=== PATIENT | female | born 2005 | race Two or more races ===

== ENCOUNTER 2023-02-09 19:26 | Emergency (ER) | payer BC, SELFPAY ==
--- NOTE | ~2023-02-09 | XR_ITS ---
EXAMINATION: XR CHEST CLINICAL INFORMATION: Cough. COMPARISON: None available. TECHNIQUE: 2 views of the chest were obtained. FINDINGS: No significant abnormality is noted involving the heart, lungs, mediastinum, bony thorax or soft tissues. XR/XR chest 2V IMPRESSION: Unremarkable examination.
--- NOTE | 2023-02-09 19:56 | ED_ITS ---
HPI - General Adult General Chief complaint: Upper Respiratory Symptoms <NATALIA Tafoya - Last Filed: 02/09/23 19:57> Stated complaint: Flu like symptoms/Fever <NATALIA Tafoya - Last Filed: 02/09/23 19:57> Time Seen by Provider: 02/09/23 23:43 <NATALIA Tafoya - Last Filed: 02/09/23 19:57> Source: patient <NATALIA Webster - Last Filed: 02/10/23 00:02> Mode of arrival: ambulatory <NATALIA Webster - Last Filed: 02/10/23 00:02> Limitations: no limitations <NATALIA Webster Last Filed: 02/10/23 00:02> History of Present Illness HPI narrative: This is a 17-year-old female without significant medical history presenting to the emergency department fatigue, malaise, subjective fevers and chills, sore throat, weakness, dry cough, myalgias since Sunday, 3 days ago. Patient took a strep test at school and was negative. Patient reports severe throat pain making it difficult to swallow. Patient tells her with mother her m ost is a dry cough and a sore throat. Denies any recent sick contacts. Denies chest pain, shortness of breath, nausea, vomiting, abdominal pain, headache, vision changes, dizziness. <NATALIA Webster Last Filed: 02/10/23 00:02> Related Data Home medications: Previous Rx's Medication Instructions Recorded Magic Mouthwash 5 ml PO TID #240 mL 02/09/23 Diphen/Lido/Antacid 1:1:1 240 mL suspension albuterol sulfate 90 mcg/actuation 2 inh inhalation Q4-6H PRN 02/09/23 breath activated powder inhaler shortness of breath #1 ea amoxicillin 875 mg-potassium 1 tab PO BID 10 days #20 tabs 02/09/23 clavulanate 125 mg tablet benzonatate 100 mg capsule 100 mg PO BID PRN cough #20 caps 02/10/23 prednisone 20 mg tablet 40 mg PO DAILY 5 days #10 tabs 02/10/23 <NATALIA Tafoya - Last Filed: 02/09/23 19:57> Allergies/adverse reactions: Allergies Allergy/AdvReac Type Severity Reaction Status Date / Time No Known Allergies Allergy Verified 02/09/23 19:57 <NATALIA Tafoya - Last Filed: 02/09/23 19:57> Review of Systems Review of Systems: Constitutional : No Weight loss, + Fever, + Chills, + Fatigue, + Malaise ENT/Mouth : + sore throat, No Rhinorrhea Eyes: No Eye Pain, No Swelling, No Redness Cardiovascular : No Chest Pain, No SOB, No Dyspnea on Exertion, No Orthopnea, No Edema, No Palpitations Respiratory : + Cough, No Sputum, No Wheezing Gastrointestinal : No Nausea, No Vomiting, No Diarrhea, No Constipation, No abdominal Pain, No Hematochezia, No Melena Genitourinary : No Dysuria, No Urinary Frequency, No Hematuria, Musculoskeletal : No joint pain, No Myalgias, No Joint Swelling Skin : No Skin Lesions, No rash Neuro : No Weakness, No Numbness, No Dizziness, No Headache Psych : No Anxiety/Panic, No Depression All other systems reviewed and are negative <NATALIA Webster - Last Filed: 02/10/23 00:02> Yes all other systems are reviewed and are negative <NATALIA Webster - Last Filed: 02/10/23 00:02> [facility] Past Medical History Attestation statement: The following information was validated with the patient. <NATALIA Webster - Last Filed: 02/10/23 00:02> Source: old records reviewed and nursing notes reviewed <NATALIA Webster - Last Filed: 02/10/23 00:02> Social History Social History: Social History Advance Directives: No Advance Directives Information Provided: No <NATALIA Tafoya - Last Filed: 02/09/23 19:57> Physical Exam ED Vital Signs: Vital Signs - 24 hr 02/09/23 20:01 02/09/23 23:35 Temperature 100.7 F H 99 F Pulse Rate 130 H 118 H Respiratory Rate 20 16 Blood Pressure 160/63 H 113/73 Pulse Oximetry 95 100 Oxygen Delivery Method Room Air Room Air BMI result Body Mass Index 21.0 <NATALIA Tafoya Last Filed: 02/09/23 19:57> Vital Signs - 24 hr 02/09/23 20:01 02/09/23 23:35 Temperature 100.7 F H 99 F Pulse Rate 130 H 118 H Respiratory Rate 20 16 Blood Pressure 160/63 H 113/73 Pulse Oximetry 95 100 Oxygen Delivery Method Room Air Room Air BMI result Body Mass Index 21.0 Vital signs stable <NATALIA Webster Last Filed: 02/10/23 00:02> Appearance: Alert.? Oriented X3.? No acute distress.? Head: Normocephalic, atraumatic, no step-offs or deformities Eyes: Pupils equal, round and reactive to light.? ENT: Pharynx with bilateral tonsils with erythema slight edema, uvula midline, no signs of abscess or exudate. Patient speaking in full sentences controlling secretions well. No pain with manipulation of bilateral ears. No mastoid tenderness..? Neck: Normal inspection.? Neck supple.? CVS: Normal heart rate and rhythm.? Pulses normal.? Respiratory: No respiratory distress.? Breath sounds normal.? Abdomen: Soft and nontender.? Skin: Skin warm and dry.? Normal skin color.? Normal skin turgor.? Extremities: No lower extremity edema.? No calf ttp. 5/5 strength to bilateral upper and lower extremities Neuro: Oriented X 3.? No motor deficit.? No sensory deficit. CN 2-12 intact <NATALIA Webster Last Filed: 02/10/23 00:02> Course Course Course Narrative: RME performed by Yakelin Otero PA-C. Patient is a 17 year old assigned female at presenting to the emergency department with sore throat and fever. Labs and swabs ordered. Patient placed back in the waiting room pending room availability and results. <NATALIA Tafoya Last Filed: 02/09/23 19:57> Reevaluation(s) Reevaluation #1: CBC with slight leukocytosis. Chemistry without acute electrolyte abnormalities requiring intervention. COVID, influenza negative. Strep negative. Will treat patient for bronchitis will discharge on Augmentin, prednisone, albuterol inhaler. Educated patient on diagnosis and treatment plan, answered all question, patient verbalizes understanding. At this time patient will be discharged home, advised to return with new or worsening symptoms. Educated on worrisome signs and symptoms and when to return. At this time I feel comfortable discharge home. <NATALIA Webster - Last Filed: 02/10/23 00:02> Time: 23:51 <NATALIA Webster - Last Filed: 02/10/23 00:02> Medical Decision Making Medical Decision Making [facility] Narrative: 2340 17-year-old female presents with fatigue, malaise, sore throat, cough, subjective fevers and chills as well as weakness x3 days Physical exam significant for Pharynx with bilateral tonsils with erythema slight edema, uvula midline, no signs of abscess or exudate. Patient speaking in full sentences controlling secretions well. No pain with manipulation of bilateral ears. No mastoid tenderness..? Lungs clear. Regular rate and rhythm. Neuro nonfocal. Concerns for possible bronchitis. No signs of pneumonia, peritonsillar abscess, PE, epiglottitis, threatened airway. Other differentials include strep pharyngitis viral illness. Patient was tachycardic likely secondary to fever. I do not suspect pulmonary embolism patient without risk factors. Fever and t achycardia likely secondary to viral illness not from sepsis. Plan at this time viral testing basic labs <NATALIA Webster - Last Filed: 02/10/23 00:02> Differential Diagnosis Differential Diagnoses: The differential diagnosis associated with the presentation includes <NATALIA Webster Last Filed: 02/10/23 00:02> Concerns for possible bronchitis. No signs of pneumonia, peritonsillar abscess, PE, epiglottitis, threatened airway. Other differentials include strep pharyngitis viral illness <NATALIA Webster Last Filed: 02/10/23 00:02> Admission/Observation Consideration of admission/observation: Escalation of care including admission/observation considered <NATALIA Webster Last Filed: 02/10/23 00:02> Lab Data [facility] Lab Attestation statement: I reviewed the patient's lab results. <NATALIA Webster Last Filed: 02/10/23 00:02> Result Diagrams: 02/09/23 21:07 02/09/23 21:07 <NATALIA Tafoya - Last Filed: 02/09/23 19:57> Labs: Lab Results 02/09/23 02/09/23 02/09/23 Range/Units 21:04 21:04 21:05 WBC (4.8-10.8) X10*3/uL RBC (4.20-5.50) X10*6/uL Hgb (12.0-16.0) g/dl Hct (37.0-47.0) % MCV (80.0-98.0) fL MCH (27.0-33.0) pg MCHC (31.0-35.0) g/dl RDW (11.0-16.0) % Plt Count (160-400) X10*3/uL MPV (9.4-12.3) fL Immature Gran % (Auto) (0.0-0.4) % Neut % (Auto) (45-73) % Lymph % (Auto) (20-40) % [place] % (Auto) (2-11) % Eos % (Auto) (0-4) % Baso % (Auto) (0-2) % Lymph # (Auto) (1.2-4.9) X10*3/uL [place] # (Auto) (0.1-1.2) X10*3/uL Eos # (Auto) (0.0-0.4) X10*3/uL Baso # (Auto) (0.0-0.2) X10*3/uL Abs Immat Gran (auto) (0.00-0.03) X10*3/uL Absolute Neuts (auto) (2.0-8.3) x10*3/uL Absolute Nucleated RBC (0.0-0.012) X10*3/uL Nucleated RBC % (auto) (0.0-0.2) /100WBC Sodium (135-145) mmol/L Potassium (3.3-5.1) mmol/L Chloride (96-108) mmol/L Carbon Dioxide (22-29) mmol/L Anion Gap (12-20) BUN (9-16) mg/dL Creatinine (0.5-1.4) mg/dL Estim Creat Clear Calc Estimated GFR Random Glucose (60-115) mg/dL Calcium (8.4-10.2) mg/dL Magnesium (1.6-2.6) mg/dL Total Bilirubin (0.0-1.0) mg/dL AST (5-31) U/L ALT (0-31) U/L Alkaline Phosphatase (39-117) U/L Total Protein (6.5-8.0) g/dL Albumin (3.5-5.0) g/dL COVID-19 (TYRONE) Negative (Negative) COVID-19 Clin Com See Note Influenza Type A (SRINIVASAN) Negative (Negative) Influenza Type B (SRINIVASAN) Negative (Negative) Influenza A & B Note See Note S. pyogenes GrpA SRINIVASAN Negative (Negative) 02/09/23 02/09/23 Range/Units 21:07 21:07 WBC 11.0 H (4.8-10.8) X10*3/uL RBC 4.27 (4.20-5.50) X10*6/uL Hgb 12.8 (12.0-16.0) g/dl Hct 37.2 (37.0-47.0) % MCV 87.1 (80.0-98.0) fL MCH 30.0 (27.0-33.0) pg MCHC 34.4 (31.0-35.0) g/dl RDW 12.1 (11.0-16.0) % Plt Count 216 (160-400) X10*3/uL MPV 10.1 (9.4-12.3) fL Immature Gran % (Auto) 0.4 (0.0-0.4) % Neut % (Auto) 82.9 H (45-73) % Lymph % (Auto) 9.4 L (20-40) % [place] % (Auto) 6.9 (2-11) % Eos % (Auto) 0.1 (0-4) % Baso % (Auto) 0.3 (0-2) % Lymph # (Auto) 1.0 L (1.2-4.9) X10*3/uL [place] # (Auto) 0.8 (0.1-1.2) X10*3/uL Eos # (Auto) 0.0 (0.0-0.4) X10*3/uL Baso # (Auto) 0.0 (0.0-0.2) X10*3/uL Abs Immat Gran (auto) 0.04 H (0.00-0.03) X10*3/uL Absolute Neuts (auto) 9.1 H (2.0-8.3) x10*3/uL Absolute Nucleated RBC 0.000 (0.0-0.012) X10*3/uL Nucleated RBC % (auto) 0.0 (0.0-0.2) /100WBC Sodium 137 (135-145) mmol/L Potassium 3.9 (3.3-5.1) mmol/L Chloride 105 (96-108) mmol/L Carbon Dioxide 21 L (22-29) mmol/L Anion Gap 15 (12-20) BUN 11 (9-16) mg/dL Creatinine 0.72 (0.5-1.4) mg/dL Estim Creat Clear Calc 99.4 Estimated GFR > 60 Random Glucose 91 (60-115) mg/dL Calcium 9.1 (8.4-10.2) mg/dL Magnesium 2.1 (1.6-2.6) mg/dL Total Bilirubin 1.1 H (0.0-1.0) mg/dL AST 26 (5-31) U/L ALT 33 H (0-31) U/L Alkaline Phosphatase 81 (39-117) U/L Total Protein 7.1 (6.5-8.0) g/dL Albumin 4.6 (3.5-5.0) g/dL COVID-19 (TYRONE) (Negative) COVID-19 Clin Com Influenza Type A (SRINIVASAN) (Negative) Influenza Type B (SRINIVASAN) (Negative) Influenza A & B Note S. pyogenes GrpA SRINIVASAN (Negative) <NATALIA Tafoya - Last Filed: 02/09/23 19:57> Lab Results 02/09/23 02/09/23 02/09/23 Range/Units 21:04 21:04 21:05 WBC (4.8-10.8) X10*3/uL RBC (4.20-5.50) X10*6/uL Hgb (12.0-16.0) g/dl Hct (37.0-47.0) % MCV (80.0-98.0) fL MCH (27.0-33.0) pg MCHC (31.0-35.0) g/dl RDW (11.0-16.0) % Plt Count (160-400) X10*3/uL MPV (9.4-12.3) fL Immature Gran % (Auto) (0.0-0.4) % Neut % (Auto) (45-73) % Lymph % (Auto) (20-40) % [place] % (Auto) (2-11) % Eos % (Auto) (0-4) % Baso % (Auto) (0-2) % Lymph # (Auto) (1.2-4.9) X10*3/uL [place] # (Auto) (0.1-1.2) X10*3/uL Eos # (Auto) (0.0-0.4) X10*3/uL Baso # (Auto) (0.0-0.2) X10*3/uL Abs Immat Gran (auto) (0.00-0.03) X10*3/uL Absolute Neuts (auto) (2.0-8.3) x10*3/uL Absolute Nucleated RBC (0.0-0.012) X10*3/uL Nucleated RBC % (auto) (0.0-0.2) /100WBC Sodium (135-145) mmol/L Potassium (3.3-5.1) mmol/L Chloride (96-108) mmol/L Carbon Dioxide (22-29) mmol/L Anion Gap (12-20) BUN (9-16) mg/dL Creatinine (0.5-1.4) mg/dL Estim Creat Clear Calc Estimated GFR Random Glucose (60-115) mg/dL Calcium (8.4-10.2) mg/dL Magnesium (1.6-2.6) mg/dL Total Bilirubin (0.0-1.0) mg/dL AST (5-31) U/L ALT (0-31) U/L Alkaline Phosphatase (39-117) U/L Total Protein (6.5-8.0) g/dL Albumin (3.5-5.0) g/dL COVID-19 (TYRONE) Negative (Negative) COVID-19 Clin Com See Note Influenza Type A (SRINIVASAN) Negative (Negative) Influenza Type B (SRINIVASAN) Negative (Negative) Influenza A & B Note See Note S. pyogenes GrpA SRINIVASAN Negative (Negative) 02/09/23 02/09/23 Range/Units 21:07 21:07 WBC 11.0 H (4.8-10.8) X10*3/uL RBC 4.27 (4.20-5.50) X10*6/uL Hgb 12.8 (12.0-16.0) g/dl Hct 37.2 (37.0-47.0) % MCV 87.1 (80.0-98.0) fL MCH 30.0 (27.0-33.0) pg MCHC 34.4 (31.0-35.0) g/dl RDW 12.1 (11.0-16.0) % Plt Count 216 (160-400) X10*3/uL MPV 10.1 (9.4-12.3) fL Immature Gran % (Auto) 0.4 (0.0-0.4) % Neut % (Auto) 82.9 H (45-73) % Lymph % (Auto) 9.4 L (20-40) % [place] % (Auto) 6.9 (2-11) % Eos % (Auto) 0.1 (0-4) % Baso % (Auto) 0.3 (0-2) % Lymph # (Auto) 1.0 L (1.2-4.9) X10*3/uL [place] # (Auto) 0.8 (0.1-1.2) X10*3/uL Eos # (Auto) 0.0 (0.0-0.4) X10*3/uL Baso # (Auto) 0.0 (0.0-0.2) X10*3/uL Abs Immat Gran (auto) 0.04 H (0.00-0.03) X10*3/uL Absolute Neuts (auto) 9.1 H (2.0-8.3) x10*3/uL Absolute Nucleated RBC 0.000 (0.0-0.012) X10*3/uL Nucleated RBC % (auto) 0.0 (0.0-0.2) /100WBC Sodium 137 (135-145) mmol/L Potassium 3.9 (3.3-5.1) mmol/L Chloride 105 (96-108) mmol/L Carbon Dioxide 21 L (22-29) mmol/L Anion Gap 15 (12-20) BUN 11 (9-16) mg/dL Creatinine 0.72 (0.5-1.4) mg/dL Estim Creat Clear Calc 99.4 Estimated GFR > 60 Random Glucose 91 (60-115) mg/dL Calcium 9.1 (8.4-10.2) mg/dL Magnesium 2.1 (1.6-2.6) mg/dL Total Bilirubin 1.1 H (0.0-1.0) mg/dL AST 26 (5-31) U/L ALT 33 H (0-31) U/L Alkaline Phosphatase 81 (39-117) U/L Total Protein 7.1 (6.5-8.0) g/dL Albumin 4.6 (3.5-5.0) g/dL COVID-19 (TYRONE) (Negative) COVID-19 Clin Com Influenza Type A (SRINIVASAN) (Negative) Influenza Type B (SRINIVASAN) (Negative) Influenza A & B Note S. pyogenes GrpA SRINIVASAN (Negative) <NATALIA Webster - Last Filed: 02/10/23 00:02> Independent Interpretation I performed an independent interpretation of an: Plain X-Ray (XR/XR chest 2V IMPRESSION: Unremarkable examination.) < NATALIA Webster - Last Filed: 02/10/23 00:02> Radiology Impression Discussion of test interpretation with radiology: I have reviewed the radiologist's reading. <NATALIA Webster - Last Filed: 02/10/23 00:02> Prescription Management I considered prescription management with: Antibiotic <NATALIA Webster - Last Filed: 02/10/23 00:02> Core Measures AMI core measures followed: Yes <NATALIA Webster Last Filed: 02/10/23 00:02> Measure exclusions: not indicated <NATALIA Webster Last Filed: 02/10/23 00:02> Critical Care Time Critical Care Time Critical Care Time: No <NATALIA Webster - Last Filed: 02/10/23 00:02> Discharge Plan Discharge Clinical Impression: Upper respiratory infection, Sore throat, Fever <NATALIA Tafoya Last Filed: 02/09/23 19:57> Patient Disposition: Home, Self-Care <NATALIA Tafoya - Last Filed: 02/09/23 19:57> Instructions: Pharyngitis (ED) <NATALIA Tafoya Last Filed: 02/09/23 19:57> Additional Instructions: Take your medications as prescribed. If you were prescribed antibiotics today, it is important that you take your medication to their entirety, do not skip any doses, do not finish them early. Follow-up with your primary care provider this week. Return to the emergency department with new or worsening symptoms. Such as fevers, chills, chest pain, shortness of breath, nausea, vomiting, dizziness, headache, vision changes, lethargy In case of emergency call 911 For fever please take ibuprofen every 6 hours, Tylenol every 4. Do not exceed maximum daily dose is listed on packaging. <NATALIA Tafoya - Last Filed: 02/09/23 19:57> Prescriptions: New albuterol sulfate 90 mcg/actuation aerosol powdr breath activated 2 inh inhalation Q4-6H PRN (Reason: shortness of breath) Qty: 1 0RF amoxicillin-pot clavulanate 875-125 mg tablet 1 tab PO BID 10 Days Qty: 20 0RF Magic Mouthwash Diphen/Lido/Antacid 1:1:1 240 mL suspension 5 ml PO TID Qty: 240 0RF Rx Instructions: Lidocaine Viscous 2 % 80mL; diphenhydramine 12.5 mg/5 mL 80mL; aluminum-mag hydrox-simeth [id number]/5mL 80mL Swish and spit, do not swallow prednisone 20 mg tablet 40 mg PO DAILY 5 Days Qty: 10 0RF benzonatate 100 mg capsule 100 mg PO BID PRN (Reason: cough) Qty: 20 0RF <NATALIA Tafoya - Last Filed: 02/09/23 19:57> Referrals: Physician,None [Primary Care Provider] - 2 days <NATALIA Tafoya Last Filed: 02/09/23 19:57> Stand Alone Forms: Work/School Release <NATALIA Tafoya - Last Filed: 02/09/23 19:57>
[2023-02-09 20:01] VITALS: BP 160/63; PULSE 130; RESP 20; TEMP 38.2; O2SAT 95; BMI 21.0
[2023-02-09 21:14] LABS: MANUAL DIFF FLAG NO
[2023-02-09 21:17] LABS: Basophils Percent Auto 0.3 % (0-2); Eosinophils Percent Auto 0.1 % (0-4); Hematocrit 37.2 % (37.0-47.0); Hemoglobin 12.8 g/dl (12.0-16.0); Imm Gran Abs Auto 0.04 X10*3/uL (0.00-0.03); Imm Gran Pct Auto 0.4 % (0.0-0.4); Lymphocytes Percent Auto 9.4 % (20-40); Mean Corpuscular HGB Conc 34.4 g/dl (31.0-35.0); Mean Corpuscular Volume 87.1 fL (80.0-98.0); Mean Platelet Volume 10.1 fL (9.4-12.3); Monocytes Absolute Auto 0.8 X10*3/uL (0.1-1.2); Monocytes Percent Auto 6.9 % (2-11); Neutrophils Absolute Auto 9.1 x10*3/uL (2.0-8.3); Neutrophils Percent Auto 82.9 % (45-73); Platelet Count 216 X10*3/uL (160-400); Red Blood Count 4.27 X10*6/uL (4.20-5.50); Red Cell Distribution Width 12.1 % (11.0-16.0)
[2023-02-09 21:35] LABS: COVID-19 Test Negative (Negative); IDNOW Serial# 55D5AD1C
[2023-02-09 21:40] LABS: Strep A Nucleic Acid Negative (Negative)
[2023-02-09 21:41] LABS: Alanine Aminotransferase 33 U/L (0-31); Albumin Level 4.6 g/dL (3.5-5.0); Alkaline Phosphatase 81 U/L (39-117); Anion Gap 15 (12-20); Aspartate Amino Transferase 26 U/L (5-31); Bilirubin Total 1.1 mg/dL (0.0-1.0); Blood Urea Nitrogen 11 mg/dL (9-16); Calcium 9.1 mg/dL (8.4-10.2); Carbon Dioxide 21 mmol/L (22-29); Chloride 105 mmol/L (96-108); Creatinine Clr Calc Pharmacy 99.4; Estimated Glomerular Filt Rate > 60; Glucose Random 91 mg/dL (60-115); Magnesium 2.1 mg/dL (1.6-2.6); Potassium 3.9 mmol/L (3.3-5.1); Sodium 137 mmol/L (135-145); Total Protein 7.1 g/dL (6.5-8.0)
[2023-02-09 21:45] LABS: IDNOW Serial# 6674DD1D; Influenza A Negative (Negative); Influenza B2 Negative (Negative)
[2023-02-09 23:35] VITALS: BP 113/73; PULSE 118; RESP 16; TEMP 37.2; O2SAT 100
[2023-02-10] MEDS: Amoxicillin/Potassium Clav 875 MG TABLET PO (00:43)
[2023-02-10] MEDS: Acetaminophen 325 MG TABLET 975 MG PO (00:43)
[2023-02-10] MEDS: Lidocaine HCl Viscous 2 % 15 ML SOLUTION MUCOUS MEM (00:43)
== END 2023-02-10 00:55 | disposition home or self-care (01) ==
PROVIDERS: Physician Assistant Medical; Emergency Provider Internal Medicine
DX: J06.9 Acute upper respiratory infection, unspecified (principal); J02.9 Acute pharyngitis, unspecified; R50.9 Fever, unspecified; Z20.822 Contact with and (suspected) exposure to COVID-19
CPT/HCPCS: 71046; 80053; 83735; 85025; 87502; 87635; 87651; 99283